=== PATIENT | male | born 2000 | race Caucasian/White ===

== ENCOUNTER 2022-03-10 11:11 | Emergency (ER) | payer MEDICAID ==
[~2022-03-10] VITALS: Ht 167.6 cm; Wt 47.2 kg
[2022-03-10 11:20] VITALS: BP_SYST 131
--- NOTE | 2022-03-10 11:25 | NUR ---
Patient triaged and placed in waiting room. VSS and patient appears in no acute distress at this time. Accompanied by MOTHER, awaiting available bed, and MD notified of need for MSE.
--- NOTE | 2022-03-10 11:40 | NUR ---
ER DR. MAY EXAMINING PT IN TRIAGE
--- NOTE | 2022-03-10 14:00 | NUR ---
Patient given written and verbal discharge instructions and verbalizes understanding. ER MD discussed with patient the results and treatment provided. Patient in stable condition. ID arm band removed. NO Rx given. Patient educated on pain management and to follow up with PMD. Pain Scale 0/10. Opportunity for questions provided and answered. Medication side effect fact sheet provided.
== END 2022-03-10 14:01 | disposition home or self-care (01) ==
LOC: SED 11:11
DX: S09.90XA Unspecified injury of head, initial encounter (principal); Z79.899 Other long term (current) drug therapy; W22.8XXA Striking against or struck by other objects, initial encounter; Y93.89 Activity, other specified; Y92.89 Other specified places as the place of occurrence of the external cause; Y99.8 Other external cause status
CPT/HCPCS: 70450-TC; 76376; 99284